=== PATIENT | female | born 1965 | race Caucasian/White ===

== ENCOUNTER 2018-03-05 06:59 | Day surgery (SDC) | payer MEDICARE, MEDICAID ==
[~2018-03-05] VITALS: Ht 157.5 cm; Wt 85.0 kg
[2018-03-05] VITALS (14 sets, daily range): BP systolic 116–157; BP diastolic 76–97
[~2018-03-05 06:59] MED LIST: Cefazolin 2GM/50ML dext iso,osmotic IVPB IV ONE; HYDR-3972 PO; LISI40TA4 PO; OMEP20CA10 PO; ONDA8TAB6 PO; famotidine 20mg tablet PO ONE; ringers solution, lacted 1,000 ML IV SCH
[2018-03-05] MEDS ORDERED: LIDOcaine 1% (10mg/ml) 2ml vial ONE (07:43)
[2018-03-05 08:42] LABS: BASOPHILS % (AUTO) 0.1 % (0-1); EOSINOPHILS # (AUTO) 0.4 X10'3 (0-0.9); EOSINOPHILS % (AUTO) 4.2 % (0-6); LYMPHOCYTES # (AUTO) 1.2 X10'3 (1.1-4.8); LYMPHOCYTES % (AUTO) 14.6 % (21-51); MEAN CORPUSCULAR HEMOGLOBIN 36.3 PG (27.0-31.0); MEAN CORPUSCULAR HGB CONC 34.8 % (33.0-36.5); MEAN CORPUSCULAR VOLUME 104.3 FL (78-98); MEAN PLATELET VOLUME 8.1 FL (7.4-10.4); MONOCYTES # (AUTO) 0.5 X10'3 (0-0.9); NEUTROPHILS # (AUTO) 6.4 X10'3 (1.8-7.7); NEUTROPHILS % (AUTO) 75.1 % (42-75); PRE OP HEMATOCRIT 41.5 % (35.0-45.0); PRE OP HEMOGLOBIN 14.4 g/dL (12.0-16.0); PRE OP PLATELET COUNT 268 X10'3 (140-440); RED BLOOD COUNT 3.98 X10'6 (4.20-5.60); RED CELL DISTRIBUTION WIDTH 14.7 % (11.5-14.5)
[2018-03-05 09:00] LABS: ALBUMIN 3.3 G/DL (3.4-5.0); ALBUMIN/GLOBULIN RATIO 1.1 (1.1-1.5); ALKALINE PHOSPHATASE 61 IU/L (46-116); BLOOD UREA NITROGEN 13 MG/DL (7-18); BUN/CREATININE RATIO 14.9 (6.6-38.0); CALCIUM 8.7 MG/DL (8.5-10.1); CHLORIDE 106 MMOL/L (99-107); CREATININE 0.87 MG/DL (0.40-0.90); PRE OP ALT 19 U/L (30-65); PRE OP ANION GAP 4 (8-16); PRE OP AST 14 U/L (10-37); PRE OP BILIRUB, TOTAL 0.5 MG/DL (0.0-1.0); PRE OP GLUCOSE 89 MG/DL (70-104); PRE OP SODIUM 137 MMOL/L (135-145); TOTAL CARBON DIOXIDE 27.3 MMOL/L (24-32); TOTAL PROTEIN 6.3 G/DL (6.4-8.2); eGFR 68 ML/MIN
[2018-03-05] MEDS ORDERED: ceFAZolin 1000mg inj ONE (10:00)
[2018-03-05] MEDS ORDERED: BUPIVAcaine/PF 2.5mg/ml (0.25%) 10ml vial ONE (10:00)
[2018-03-05] MEDS ORDERED: sevoflurane 250ml liquid IH ONE (10:16)
[2018-03-05] MEDS ORDERED: glycopyrrolate 0.2mg/ml inj ONE (10:16)
[2018-03-05] MEDS ORDERED: dexamethasone sod phosphate 10mg/ml inj ONE (10:16)
[2018-03-05] MEDS ORDERED: neostigmine methylsulfate 1 MG/ML 10ml vial ONE (10:16)
[2018-03-05] MEDS ORDERED: midazolam 2 mg/2 ml injection ONE ×2 (10:17→10:25)
[2018-03-05] MEDS ORDERED: rocuronium 10mg/ml inj IV ONE (10:18)
[2018-03-05] MEDS ORDERED: propofol inj 20 ML IV ONE (10:18)
[2018-03-05] MEDS ORDERED: fentaNYL /PF 50mcg/ml 5ml ampule ONE (10:18)
[2018-03-05] MEDS ORDERED: ringers solution, lacted 1,000 ML IV SCH (10:54)
[2018-03-05] MEDS ORDERED: meperidine/PF 25mg/ml syringe IV PRN ×3 (10:55)
[2018-03-05] MEDS ORDERED: morphine 4 MG/ML inj SYRINge IV PRN ×2 (10:55)
[2018-03-05] MEDS ORDERED: proCHLORperazine 10 MG/2 ml inj IV PRN (10:55)
[2018-03-05] MEDS ORDERED: ondansetron/PF 4mg/2ml inj IV PRN (10:55)
[2018-03-05] MEDS ORDERED: ondansetron/PF 4mg/2ml inj ONE (10:58)
== END 2018-03-05 13:01 | disposition home or self-care (01) ==
LOC: PAS 06:59
PROVIDERS: ATTEND Surgery
DX: K43.9 Ventral hernia without obstruction or gangrene (principal); I10 Essential (primary) hypertension; K21.9 Gastro-esophageal reflux disease without esophagitis; F17.210 Nicotine dependence, cigarettes, uncomplicated; Z93.2 Ileostomy status; Z86.14 Personal history of Methicillin resistant Staphylococcus aureus infection; Z79.891 Long term (current) use of opiate analgesic; Z79.899 Other long term (current) drug therapy; Z98.890 Other specified postprocedural states
CPT/HCPCS: 36415; 49570; 80053; 85025; 93005; A6449; C1781; J0690; J1100; J2175; J2250; J2405; J2704; J2710; J3010; J3490; J7120; 88302; A7000